=== PATIENT | female | born 1990 | race Two or more races ===

== ENCOUNTER 2020-03-19 12:58 | Emergency (ER) | payer OTHER ==
[~2020-03-19] VITALS: Ht 170.2 cm; Wt 95.7 kg
[2020-03-19 13:04] VITALS: BP 110/74; Ht 170.2 cm; Wt 95.7 kg
[2020-03-19 13:46] LABS: microscopic required? YES; urine erythrocyte 1+ (NEGATIVE)
== END 2020-03-19 13:35 | disposition home or self-care (01) ==
LOC: ED 12:58
PROVIDERS: Emergency Medicine
DX: R30.0 Dysuria (principal); R50.9 Fever, unspecified; M54.5 Low back pain; R35.0 Frequency of micturition